=== PATIENT | female | born 1970 | race Caucasian/White ===

== ENCOUNTER 2020-03-05 12:58 | Emergency (ER) | payer MEDICAID ==
[~2020-03-05] VITALS: Ht 152.4 cm; Wt 70.8 kg
[2020-03-05 13:16] VITALS: Ht 152.4 cm; Wt 70.8 kg
[2020-03-05 15:02] LABS: BASOPHIL % 0.3 % (0-2); RED CELL DISTRIBUTION WIDTH 14.1 % (11.5-14.5)
[2020-03-05 15:05] LABS: PLATELET COUNT 509 x10^3mcL (130-400)
[2020-03-05 15:56] LABS: CALCIUM 8.5 mg/dL (8.5-10.1); CARBON DIOXIDE 28.4 mmol/L (21-32); CHLORIDE SERUM 100 mmol/L (98-107); CREATININE SERUM 0.8 mg/dL (0.6-1.0); GFR1 > 60 mL/min; GLUCOSE SERUM 346 mg/dL (74-106); POTASSIUM SERUM 4.4 mmol/L (3.5-5.1); SODIUM SERUM 137 mmol/L (136-145)
[2020-03-05 16:00] LABS: ALKALINE PHOSPHATASE 135 U/L (46-116); ALT/SGPT 34 U/L (14-59); AST/SGOT 19 U/L (15-37); BILIRUBIN TOTAL 0.2 mg/dL (0.20-1.00); LIPASE 63 IU/L (73-393); TOTAL PROTEIN, SERUM 7.3 g/dL (6.4-8.2)
[2020-03-05 16:01] LABS: ALBUMIN 2.9 g/dL (3.4-5.0)
[2020-03-05 16:44] VITALS: BP 147/64
== END 2020-03-05 16:44 | disposition home or self-care (01) ==
LOC: ED 12:58
PROVIDERS: Emergency Medicine
DX: K76.0 Fatty (change of) liver, not elsewhere classified (principal); K29.70 Gastritis, unspecified, without bleeding; E11.9 Type 2 diabetes mellitus without complications
CPT/HCPCS: J2270; J2405; J7030; Q0092